=== PATIENT | male | born 1990 | race African-American/Black ===

== ENCOUNTER 2020-03-17 12:40 | Emergency (ER) | payer MEDICAID ==
[~2020-03-17] VITALS: Ht 170.2 cm; Wt 68.0 kg
[2020-03-17 12:52] VITALS: Ht 170.2 cm; Wt 68.0 kg
[2020-03-17 13:31] LABS: ALBUMIN 4.1 g/dL (3.4-5.0); ALKALINE PHOSPHATASE 220 U/L (46-116); ALT/SGPT 143 U/L (16-63); AST/SGOT 521 U/L (15-37); BILIRUBIN TOTAL 1.8 mg/dL (0.20-1.00); CALCIUM 8.6 mg/dL (8.5-10.1); CHLORIDE SERUM 95 mmol/L (98-107); GFR1 > 60 mL/min; GLUCOSE SERUM 97 mg/dL (74-106); SODIUM SERUM 137 mmol/L (136-145)
[2020-03-17 13:37] LABS: POTASSIUM SERUM 2.9 mmol/L (3.5-5.1); TOTAL PROTEIN, SERUM 8.5 g/dL (6.4-8.2)
[2020-03-17 14:11] LABS: BASOPHIL % 0.5 % (0-2)
[2020-03-17 14:12] LABS: PLATELET COUNT 81 x10^3mcL (130-400); RED CELL DISTRIBUTION WIDTH 14.6 % (11.5-14.5)
[2020-03-17 18:30] VITALS: BP 133/94
== END 2020-03-17 18:30 | disposition home or self-care (01) ==
LOC: ED 12:40
PROVIDERS: Emergency Medicine
DX: F10.239 Alcohol dependence with withdrawal, unspecified (principal); R56.9 Unspecified convulsions; S00.03XA Contusion of scalp, initial encounter; X58.XXXA Exposure to other specified factors, initial encounter; Y93.89 Activity, other specified; Y92.89 Other specified places as the place of occurrence of the external cause; Y99.8 Other external cause status; Y90.0 Blood alcohol level of less than 20 mg/100 ml
CPT/HCPCS: G0480; J2060; J3411; J3475; J3490; J7030; Q0092